=== PATIENT | male | born 1965 | race African-American/Black ===

== ENCOUNTER 2017-12-26 20:23 | Emergency (ER) | payer SELFPAY ==
[~2017-12-26] VITALS: Ht 167.6 cm; Wt 84.0 kg
[~2017-12-26 20:23] MED LIST: AMOX500T PO; AMOX875T PO; EMPA1TAB7 PO; FLUT50SP EACH NARE; MAGICPED SWISH-SWAL; PROT40TA PO; ZITHTAB2 PO
[2017-12-26 20:25] VITALS: BP 133/84; PULSE 82; RESP 16; TEMP 98.8; O2SAT 99
[2017-12-26] MEDS ORDERED: KETOROLAC TROMETHAMINE 60 MG/2 ML (IM) VIAL IM ONE (21:00)
[2017-12-26] MEDS ORDERED: DEXAMETHASONE SOD PHOS 20 MG/5 ML VIAL IM ONE (21:00)
--- NOTE | 2017-12-26 21:07 | PD ---
HPI Chief Complaint: Cold / Flu Symptoms Time Seen by Provider: 20:42 Travel History International Travel<30 days: No Contact w/Intl Traveler<30days: No Traveled to known affect area: No History of Present Illness HPI Patient is a 52-year-old male presenting to the emergency department for evaluation of headache, cough, nasal congestion and sore throat. Patient's symptoms started yesterday, he reports taking Mucinex and Sudafed. Sudafed alleviated his headache yesterday, he did not take any today. Patient denies any fevers, nausea, vomiting, chest pain, abdominal pain or shortness of breath. Symptom onset was gradual, symptom severity is mild to moderate. There are no alleviating factors. Patient states he try to go to work today but could not finish his shift. 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 PFSH Past Medical History Hx Anticoagulant Therapy: No Cancer: Yes (neck ca) High Cholesterol: Yes Chemotherapy: Yes Diabetes: Yes Endocrine: Yes Gastrointestinal Disorders: Yes (GASTRITIS, H PYLORI, ULCER HX) Implanted Vascular Access Dvce: Yes (PORT L CHEST INFUSAPORT) Medical other: Yes Immunizations Current: Yes Radiation Therapy: Yes (08/15) Ulcer: Yes Past Surgical History Abdominal Surgery: No Appendectomy: No Body Medical Devices: NONE Cardiac Surgery: No Cholecystectomy: No Coronary Artery Bypass Graft: No Ear Surgery: No Endocrine Surgery: No Eye Surgery: No Genitourinary Surgery: No Gynecologic Surgery: No Neurologic Surgery: No Oral Surgery: No Pacemaker: No Thoracic Surgery: Yes (LEFT CHEST INFUSAPORT) Other Surgery: Yes (left port placement/removal,) Social History Alcohol Use: No Tobacco Use: No Substance Use: No Allergies-Medications (Allergen,Severity, Reaction): Coded Allergies: No Known Allergies (Verified Adverse Reaction, Unknown, 12/26/17) Reported Meds & Prescriptions Reported Meds & Active Scripts Active Ibuprofen 800 Mg Tab 800 Mg PO Q6HR PRN Tamiflu (Oseltamivir Phosphate) 75 Mg Cap 75 Mg PO BID Amoxicillin 500 Mg Tab 500 Mg PO BID 10 Days Magic Mouthwash Pediatric/Adult Liq (Lidocaine/Diphenhydr/Alum/Mg/Simeth) 60 Ml Susp 5 Ml SWISH-SWAL ACHS Each 5mL contains: Diphenydramine 4.5mg, Viscous Lidocaine 2% 10mg, Maalox Advanced Regular Strength 2.7ml Zithromax Tri-Avelino (Azithromycin) 500 Mg Dspk 500 Mg PO DAILY Amoxicillin 875 Mg Tab 875 Mg PO BID Reported Fluticasone Nasal Stanton 50 Mcg/Act Naspr 50 Mcg EACH NARE BID 50 mcg/spray Protonix (Pantoprazole Sodium) 40 Mg Tab 40 Mg PO DAILY Glyxambi (Empagliflozin-Linagliptin) 10-5 Mg Tab 1 Tab PO DAILY Review of Systems Except as stated in HPI: all other systems reviewed are Neg General / Constitutional: Positive: Chills, No: Fever HENT: Positive: Headaches, Sore Throat, Rhinitis, Congestion Cardiovascular: No: Chest Pain or Discomfort Respiratory: Positive: Cough, No: Shortness of Breath, Wheezing Gastrointestinal: No: Nausea, Vomiting, Abdominal Pain Musculoskeletal: No: Myalgias Neurologic: No: Weakness, Dizziness, Syncope Physical Exam Narrative GENERAL: Well-developed, well-nourished, alert -[place] male. Presenting to emergency department in no acute distress, appears uncomfortable. SKIN: Warm and dry. HEAD: Atraumatic. Normocephalic. EYES: Pupils equal and round. No scleral icterus. No injection or drainage. ENT: No nasal bleeding or discharge. Mucous membranes pink and moist. Erythematous posterior pharynx, no exudates noted. NECK: Trachea midline. No JVD. CARDIOVASCULAR: Regular rate and rhythm. RESPIRATORY: No accessory muscle use. Clear to auscultation. Breath sounds equal bilaterally. GASTROINTESTINAL: Abdomen soft, non-tender, nondistended. Hepatic and splenic margins not palpable. MUSCULOSKELETAL: Extremities without clubbing, cyanosis, or edema. No obvious deformities. NEUROLOGICAL: Awake and alert. No obvious cranial nerve deficits. Motor grossly within normal limits. Five out of 5 muscle strength in the arms and legs. Normal speech. PSYCHIATRIC: Appropriate mood and affect; insight and judgment normal. Data Data Last Documented VS Vital Signs Date Time Temp Pulse Resp B/P (MAP) Pulse Ox O2 Delivery O2 Flow Rate FiO2 12/26/17 20:25 98.8 82 16 133/84 (100) 99 Room Air Orders Orders Group A Rapid Strep Screen (12/26/17 20:47) Influenzae A/B Antigen (12/26/17 20:47) Ketorolac Inj (Toradol Inj) (12/26/17 21:00) Dexamethasone Inj (Decadron Inj) (12/26/17 21:00) Strep Culture (Group A) (12/26/17 20:50) Oseltamivir (Tamiflu) (12/26/17 22:00) Ed Discharge Order (12/26/17 21:56) [facility] Medical Decision Making Medical Screen Exam Complete: Yes Emergency Medical Condition: Yes Interpretation(s) Vital Signs Date Time Temp Pulse Resp B/P (MAP) Pulse Ox O2 Delivery O2 Flow Rate FiO2 12/26/17 20:25 98.8 82 16 133/84 (100) 99 Room Air Differential Diagnosis Strep pharyngitis versus viral syndrome versus influenza versus sinusitis versus other Narrative Course Patient is a 52-year-old male that presented to emergency department with 1 day of cold and flulike symptoms. Patient's vital signs are stable. Strep and influenza ordered. Medications ordered for symptom management. Patient is positive for influenza B. He will be given first dose of Tamiflu now. Patient was encouraged to continue symptom management. He was educated on how to do this. He was advised to return to emergency department for any new or worsening symptoms. He was advised to maintain adequate fluid intake, rest and stay out of work until fever free for 24 hours. He was encouraged to follow-up with his primary doctor as well. He verbalized understanding of these instructions. Patient stable for discharge. Diagnosis Primary Impression: Influenza B Referrals: Primary Care Physician 3 days Patient Instructions: General Instructions, Influenza (DC) Departure Forms: Tests/Procedures, Work Release Enter return to work date: Jan 01, 2018 Additional Instructions: Maintain adequate fluid intake Take ibuprofen or acetaminophen as needed and as directed for fevers and body aches Take Tamiflu as directed Rest, do not return to work until fever free for 24 hours Follow-up with your primary doctor Return to emergency department for any new or worsening symptoms Med/Other Pt SpecificInfo: Prescription(s) given Scripts Ibuprofen (Ibuprofen) 800 Mg Tab 800 MG PO Q6HR Y for PAIN, #40 TAB 0 Refills Prov: Pam Berrios 12/26/17 Oseltamivir (Tamiflu) 75 Mg Cap 75 MG PO BID for Mgmt Viral Infection, #9 CAP 0 Refills Prov: Pam Berrios 12/26/17 Disposition: 01 DISCHARGE HOME Condition: Stable Pam Berrios Dec 26, 2017 21:06
[2017-12-26] MEDS ORDERED: IBUP1TAB7 PO (21:51)
[2017-12-26] MEDS ORDERED: OSEL75 PO (21:51)
[2017-12-26] MEDS ORDERED: OSELTAMIVIR PHOSPHATE 75 MG CAP PO ONE (22:00)
== END 2017-12-26 22:20 | disposition home or self-care (01) ==
LOC: NEPD 20:23
DX: J10.1 Influenza due to other identified influenza virus with other respiratory manifestations (principal); E78.00 Pure hypercholesterolemia, unspecified; E11.9 Type 2 diabetes mellitus without complications; Z85.89 Personal history of malignant neoplasm of other organs and systems
CPT/HCPCS: 87081; 87804; 87880; 96372; 99283; J1100; J1885